=== PATIENT | female | born 1995 | race Caucasian/White ===

== ENCOUNTER 2018-10-04 11:12 | Emergency (ER) | payer MEDICAID ==
[2018-10-04 12:23] LABS: #Basophils 0.1 thou/uL (0.0-0.2); #Eosinphils 0.2 thou/uL (0.0-0.7); #Lymphocytes 3.6 thou/uL (1.20-3.40); #Monocytes 0.7 thou/uL (0.11-0.59); #Neutrophils 6.6 thou/uL (1.40-6.50); %Basophils 0.7 % (0.0-1.0); %Eosinophils 1.8 % (0.0-10.0); %Neutrophils 59.4 % (42.0-75.0); Hemoglobin 13.6 g/dL (12.0-16.0); Mean Corpuscular HGB CONC 31.5 g/dL (32.0-36.0); Mean Corpuscular Hemoglobin 28.4 pg (27.0-31.0); Mean Corpuscular Volume 90.1 fL (78.0-98.0); Mean Platelet Volume 6.8 fL (7.4-10.4); Platelet Count 360 thou/uL (130-400); RBC Distribution Width 13.7 % (11.5-14.5); Red Blood Cell (RBC) Count 4.81 mill/uL (4.20-5.40); White Blood Cell (WBC) Count 11.2 thou/uL (4.8-10.8)
[2018-10-04 12:53] LABS: ALT (SGPT) Less than 7 U/L (8-55); AST (SGOT) 12 U/L (5-34); Albumin 4.5 g/dL (3.5-5.0); Alkaline Phosphatase 101 U/L (40-150); Anion Gap 11 mmol/L (10-20); BUN (Urea Nitrogen) 10 mg/dL (7.0-18.7); Bilirubin, Total 0.4 mg/dL (0.2-1.2); Calc. Creatinine Clearance 0 mL/min (70-130); Carbon Dioxide 26 mmol/L (22-29); Chloride 105 mmol/L (98-107); Estimated GFR-MDRD Greater than 90; Globulin 3.4 g/dL (2.4-3.5); Glucose 101 mg/dL (70-105); Lipase 15 U/L (8-78); Potassium 4.1 mmol/L (3.5-5.1); Protein, Total 7.9 g/dL (6.0-8.3); Sodium 138 mmol/L (136-145)
[2018-10-04 13:14] LABS: Pregnancy Test - Urine (BHCG) Negative (Negative); Pregu Control Background? CLEAR/WHITE (CLR/WHITE); Pregu Control Bar Appear? YES (CONTROL BAR); Specific Gravity 1.031 (1.002-1.036)
[2018-10-04 13:16] LABS: Bilirubin Negative (Negative); Blood, Urine Negative (Negative); Clarity Turbid (Clear); Glucose, Urine (Dipstick) Normal (Negative); Leukocyte 500 Leu/uL (Negative); Nitrite Negative (Negative); Protein, Urine (Dipstick) 20 mg/dL (Neg-Trace); Urobilinogen Normal mg/dL (Less than 2); WBC/HPF Greater than 50 HPF (0-3)
[2018-10-04 13:35] LABS: Bacteria/HPF 2+ HPF (None Seen)
[2018-10-04] MEDS ORDERED: Ibuprofen 800 MG TAB ONE (14:57)
[2018-10-04] MEDS ORDERED: Lidocaine 1% PF 5 ML VIAL ONE (14:58)
[2018-10-04] MEDS ORDERED: cefTRIAXone\\ROCEPHIN 250 MG VIAL ONE (14:58)
--- NOTE | 2018-10-04 16:27 | ULT ---
PELVIC ULTRASOUND: HISTORY: Pelvic pain. Known right ovarian cyst. COMPARISON: None. TECHNIQUE: Transabdominal and endovaginal imaging of the pelvis is performed. The ovaries are interrogated with mistry-scale, color-flow, and Doppler imaging with spectral wave-form analysis. FINDINGS: The uterus is identified, measuring 7.2 x 3.4 x 5.9 cm. Homogeneous endometrium with a diameter of 0 .8 cm. In the left adnexa, there is an anechoic focus associated with the ovary, measuring 2.9 x 2.2, x 2.7 cm. A left ovarian cyst is suspected. Overall, the left ovary measures 3.8 x 3.9 x 2.5 cm. The right ovary has a heterogeneous echotexture, measuring 2.6 x 2.0 x 2.3 cm. There is a small amount of free fluid in the cul-de-sac. On ovarian Doppler, there is vascular flow to the right and left ovaries. IMPRESSION: Left ovarian cyst. Follow-up ultrasound in 8 to 10 weeks is recommended to ensure resolution. POS: OFF
[2018-10-05 22:49] LABS: Chlamydia by PCR Not Detected (NotDetected); GC by PCR Not Detected (NotDetected)
== END 2018-10-04 16:30 | disposition home or self-care (01) ==
LOC: ERS 11:12
DX: N83.202 Unspecified ovarian cyst, left side (principal)
CPT/HCPCS: 36415; 76856; 80053; 81003; 81015; 81025; 83690; 85025; 87480; 87491; 87510; 87591; 87660; 93976; 96372; J0696; J2001